=== PATIENT | male | born 1985 | race Caucasian/White ===

== ENCOUNTER 2017-08-07 07:24 | Emergency (ER) | payer BC, OTHER ==
[~2017-08-07] VITALS: Ht 188 cm; Wt 160.0 kg
[~2017-08-07 07:24] MED LIST: CITA40TA4 PO; PROP10TA7 PO
[2017-08-07 07:29] VITALS: TEMP 36.7; Ht 188 cm; Wt 160.0 kg
[2017-08-07] MEDS ORDERED: HYDROmorphone INJ 1 MG/ML SYR IV STA (07:43)
[2017-08-07] MEDS ORDERED: KETOROLAC TROMETHAMINE 30 MG/ML VIAL IV STA (07:43)
[2017-08-07] MEDS ORDERED: METOCLOPRAMIDE HCL INJ 5 MG/ML 2 ML VIAL IV STA (07:43)
[2017-08-07] MEDS ORDERED: SODIUM CHLORIDE 0.9% 1000ML 1,000 ML IV STA (07:43)
[2017-08-07 07:56] LABS: BASO % 0.2 %; BASO ABS # 0.01 K/uL (0-0.2); EOS % 1.7 %; HEMATOCRIT 43.3 % (42-52); IG# 0.01 K/uL (0.00-0.02); LYMPH % 26.7 %; LYMPH ABS # 1.54 K/uL (1.2-3.4); MEAN CELL VOLUME 89.1 fL (80-100); MEAN CORPUSCULAR HEMOGLOBIN 30.9 pg (25-34); MEAN CORPUSCULAR HGB CONC 34.6 g/dl (32-36); MEAN PLATELET VOLUME 11.2 fL (7.4-10.4); MONO % 6.3 %; MONO ABS # 0.36 K/uL (0.11-0.59); NEUT % 64.9 %; NEUT ABS # 3.74 K/uL (1.4-6.5); PLATELET COUNT 217 K/uL (130-400); RED CELL DISTRIBUTION WIDTH CV 12.8 % (11.5-14.5); RED CELL DISTRIBUTION WIDTH SD 41.6 fL (36.4-46.3); WHITE BLOOD COUNT 5.76 K/uL (4.8-10.8)
--- NOTE | 2017-08-07 07:56 | EMERGENCY ROOM VISIT NOTE ---
History Report prepared by Wisam: Chandler Landry Under the Supervision of: Dr. Jimenez Redd M.D. First contact with patient: 07:29 Chief Complaint: ABDOMINAL PAIN Stated Complaint: GALLBLADDER History of Present Illness The patient is a 32 year old male who presents to the Emergency Room with complaints of worsening right sided abdominal pain that began several months ago. He notes that his pain has been worsening significantly over the past month. The patient notes that he had a Gallbladder function screening at the end of April, 3 months ago. His gallbladder was found to only be at 60%. The patient's symptoms are worsened by eating. He does not mention any vomiting. Source of History: patient Onset: Several months ago Position: abdomen (Right sided) Timing: worsening Modifying Factors (Worsening): eating Associated Symptoms: No vomiting Review of Systems See HPI for pertinent positives & negatives. A total of 10 systems reviewed and were otherwise negative. Past Medical & Surgical Medical Problems: (1) Broken leg Family History Patient reports no known family medical history. Social History Smoking Status: Never Smoker Alcohol Use: occasionally Drug Use: none Occupation Status: employed Current/Historical Medications Scheduled Amlodipine (Norvasc), 5 MG PO DAILY Pantoprazole (Pantoprazole Sodium), 40 MG PO DAILY Scheduled PRN Ondansetron Hcl (Zofran), 4 MG PO DIRECTED PRN for Nausea Miscellaneous Medications Lisinopril (Zestril), 5 MG PO Allergies Coded Allergies: Erythromycin (Verified Allergy, Unknown, hives, 08/07/17) Sulfisoxazole (Verified Allergy, Unknown, hives, 08/07/17) Physical Exam Vital Signs Date Time Temp Pulse Resp B/P (MAP) Pulse Ox O2 Delivery O2 Flow Rate FiO2 08/07/17 09:29 67 18 146/95 99 08/07/17 08:26 68 08/07/17 08:19 97 Room Air 08/07/17 08:18 70 18 142/81 97 Room Air 08/07/17 07:29 36.7 80 18 178/108 99 Room Air Physical Exam GENERAL: Awake, alert, well-appearing, in no acute distress HENT: Normocephalic, atraumatic. Oropharynx unremarkable. EYES: Normal conjunctiva. Sclera non-icteric. NECK: Supple. No nuchal rigidity. FROM. No JVD. RESPIRATORY: Clear to auscultation. CARDIAC: Regular rate, normal rhythm. Extremities warm and well perfused. Pulses equal. ABDOMEN: Soft, non-distended. No tenderness to palpation. No rebound or guarding. No masses. RECTAL: Deferred. MUSCULOSKELETAL: Chest examination reveals no tenderness. The back is symmetrical on inspection without obvious abnormality. There is no CVA tenderness to palpation. No joint edema. LOWER EXTREMITIES: Calves are equal size bilaterally and non-tender. No edema. No discoloration. NEURO: Normal sensorium. No sensory or motor deficits noted. SKIN: No rash or jaundice noted. Medical Decision & Procedures ER Provider Diagnostic Interpretation: Radiology results as stated below per my review and radiologist interpretation: ABDOMINAL ULTRASOUND, RIGHT UPPER QUADRANT HISTORY: Pt c/o RUQ abd pain . COMPARISON: None. FINDINGS: Pancreas: The pancreatic head and tail are obscured by overlying bowel gas. The remaining portions of the pancreas are within normal limits. Liver: No hepatic masses. Mildly enlarged measuring 19 cm in length. Gallbladder: No gallbladder wall thickening. No gallstones. CBD: 5 mm. Right kidney: No hydronephrosis. IMPRESSION: 1. Normal gallbladder. No gallstones. 2. Mild hepatomegaly. Electronically signed by: Darryn Mcdonough M.D. 08/07/2017 9:05 AM Dictated Date/Time: 08/07/2017 9:04 AM ABDOMEN 2VIEW W/PA CHEST RTN CLINICAL HISTORY: Right upper quadrant abdominal pain COMPARISON STUDY: No previous studies for comparison. FINDINGS: Erect chest reveals no free air. There is no focal pulmonary consolidation. Erect and supine views the abdomen reveal no abnormally dilated loops of large or small bowel. IMPRESSION: No evidence of bowel obstruction. No evidence of free air. Electronically signed by: Jey Cohen M.D. 08/07/2017 8:18 AM Dictated Date/Time: 08/07/2017 8:17 AM Laboratory Results 08/07/17 07:41 Red Blood Count 4.86, Mean Corpuscular Volume 89.1, Mean Corpuscular Hemoglobin 30.9, Mean Corpuscular Hemoglobin Concent 34.6, Mean Platelet Volume 11.2, Neutrophils (%) (Auto) 64.9, Lymphocytes (%) (Auto) 26.7, Monocytes (%) (Auto) 6.3, Eosinophils (%) (Auto) 1.7, Basophils (%) (Auto) 0.2, Neutrophils # (Auto) 3.74, Lymphocytes # (Auto) 1.54, Monocytes # (Auto) 0.36, Eosinophils # (Auto) 0.10, Basophils # (Auto) 0.01 08/07/17 07:41 Test 08/07/17 07:41 08/07/17 08:01 White Blood Count 5.76 K/uL (4.8-10.8) Red Blood Count 4.86 M/uL (4.7-6.1) Hemoglobin 15.0 g/dL (14.0-18.0) Hematocrit 43.3 % (42-52) Mean Corpuscular Volume 89.1 fL (80-100) Mean Corpuscular Hemoglobin 30.9 pg (25-34) Mean Corpuscular Hemoglobin Concent 34.6 g/dl (32-36) Platelet Count 217 K/uL (130-400) Mean Platelet Volume 11.2 fL (7.4-10.4) Neutrophils (%) (Auto) 64.9 % Lymphocytes (%) (Auto) 26.7 % Monocytes (%) (Auto) 6.3 % Eosinophils (%) (Auto) 1.7 % Basophils (%) (Auto) 0.2 % Neutrophils # (Auto) 3.74 K/uL (1.4-6.5) Lymphocytes # (Auto) 1.54 K/uL (1.2-3.4) Monocytes # (Auto) 0.36 K/uL (0.11-0.59) Eosinophils # (Auto) 0.10 K/uL (0-0.5) Basophils # (Auto) 0.01 K/uL (0-0.2) RDW Standard Deviation 41.6 fL (36.4-46.3) RDW Coefficient of Variation 12.8 % (11.5-14.5) Immature Granulocyte % (Auto) 0.2 % Immature Granulocyte # (Auto) 0.01 K/uL (0.00-0.02) Anion Gap 7.0 mmol/L (3-11) Est Creatinine Clear Calc Drug Dose 184.2 ml/min Estimated GFR () 125.6 Estimated GFR (Non- 108.4 BUN/Creatinine Ratio 18.6 (10-20) Calcium Level 8.6 mg/dl (8.5-10.1) Total Bilirubin 0.6 mg/dl (0.2-1) Direct Bilirubin < 0.1 mg/dl (0-0.2) Aspartate Amino Transf (AST/SGOT) 33 U/L (15-37) Alanine Aminotransferase (ALT/SGPT) 56 U/L (12-78) Alkaline Phosphatase 84 U/L (45-117) Total Protein 6.9 gm/dl (6.4-8.2) Albumin 3.8 gm/dl (3.4-5.0) Lipase 121 U/L (73-393) Urine Color YELLOW Urine Appearance CLEAR (CLEAR) Urine pH 5.5 (4.5-7.5) Urine Specific [place] 1.031 (1.000-1.030) Urine Protein NEG (NEG) Urine Glucose (UA) NEG (NEG) Urine Ketones NEG (NEG) Urine Occult Blood NEG (NEG) Urine Nitrite NEG (NEG) Urine Bilirubin NEG (NEG) Urine Urobilinogen NEG (NEG) Urine Leukocyte Esterase NEG (NEG) Labs reviewed by ED physician. Medications Administered Medications (Trade) Dose Ordered Sig/Aroldo Route Start Time Stop Time Status Last Admin Dose Admin Sodium Chloride 1,000 ml @ 999 mls/hr Q1H1M STAT IV 08/07/17 07:43 08/07/17 08:43 DC 08/07/17 07:56 999 MLS/HR Metoclopramide HCl (Reglan Inj) 10 mg NOW STAT IV 08/07/17 07:43 08/07/17 07:45 DC 08/07/17 07:56 10 MG Ketorolac Tromethamine (Toradol Inj) 30 mg NOW STAT IV 08/07/17 07:43 08/07/17 07:45 DC 08/07/17 07:56 30 MG ECG Per My Interpretation Indication: abdominal pain Rate (beats per minute): 75 Rhythm: normal sinus Findings: other (No TIFFANY/STD, Normal [place]) ED Course 0736: Past medical records reviewed. The patient was evaluated in room A4. A complete history and physical examination was performed. 0921: Upon reexamination the patient is resting in bed. I discussed results and treatment plan with the patient. He verbalizes agreement and understanding. The patient is ready for discharge. Medical Decision Differential diagnosis: Etiologies such as appendicitis, diverticulitis, PUD, biliary pathology, UTI, pancreatitis, obstruction, mesenteric ischemia, aortic pathology, infections, inflammatory bowel disease, renal colic, as well as others were entertained. This is a 32-year-old male who presents the emergency department complaining of abdominal pain. Patient had a large workup at [facility] and believes that his gallbladder needs to come out. Here in the emergency department he is nontender on examination. He was sent for a right upper quadrant ultrasound this along with his CBC renal profile liver profile and his lipase are all essentially normal. Patient refused pain medications here in the emergency department. Serial abdominal examinations were performed on the patient in the emergency department and at no time to the patient exhibited a surgical abdomen. Based on the patient's presentation I feel that he most likely needs follow-up with surgery as an outpatient. Strongly expressed this to the patient who is in agreement with the treatment plan. Medication Reconcilliation Current Medication List: was personally reviewed by me Blood Pressure Screening Patient's blood pressure: Elevated blood pressure Blood pressure disposition: Referred to PCP Impression Primary Impression: Abdominal pain Scribe Attestation The scribe's documentation has been prepared under my direction and personally reviewed by me in its entirety. I confirm that the note above accurately reflects all work, treatment, procedures, and medical decision making performed by me. Departure Information Dispostion Home / Self-Care Referrals CASSANDRA DIAZ D.O. (PCP) Forms HOME CARE DOCUMENTATION FORM, IMPORTANT VISIT INFORMATION Patient Instructions My [facility] Additional Instructions Follow up with Dr Vasquez's office clear liquid diet next 48 hours Take 5 ml Maalox before every meal and at bedtime You have been examined and treated today on an emergency basis only. This is not a substitute for, or an effort to provide, complete comprehensive medical care. It is impossible to recognize and treat all injuries or illnesses in a single emergency department visit. It is therefore important that you follow up closely with Dr Diaz. Call as soon as possible for an appointment. Thank you for your time and consideration. I look forward to speaking with you again soon. Please don't hesitate to call us if you have any questions. Problem Qualifiers Primary Impression: Abdominal pain Abdominal location: right upper quadrant Qualified Codes: R10.11 - Right upper quadrant pain
[2017-08-07] MEDS ORDERED: PANT40TA2 PO (08:05)
[2017-08-07] MEDS ORDERED: AMLO-110 PO (08:05)
[2017-08-07] MEDS ORDERED: ONDA4TAB46 PO (08:05)
[2017-08-07] MEDS ORDERED: LISI-729 PO (08:05)
[2017-08-07 08:15] LABS: ALBUMIN 3.8 gm/dl (3.4-5.0); BLOOD UREA NITROGEN 18 mg/dl (7-18); CALCIUM 8.6 mg/dl (8.5-10.1); CARBON DIOXIDE 26 mmol/L (21-32); CREATININE 0.94 mg/dl (0.60-1.40); GLUCOSE 92 mg/dl (70-99); LIPASE 121 U/L (73-393); POTASSIUM 4.2 mmol/L (3.5-5.1); SODIUM 140 mmol/L (136-145)
[2017-08-07 08:17] LABS: ALKALINE PHOSPHATASE 84 U/L (45-117); ALT/SGPT 56 U/L (12-78); AST/SGOT 33 U/L (15-37); TOTAL PROTEIN 6.9 gm/dl (6.4-8.2)
[2017-08-07 08:19] VITALS: O2SAT 97
--- NOTE | 2017-08-07 08:20 | DIAGNOSTIC IMAGING REPORT ---
ABDOMEN 2VIEW W/PA CHEST RTN CLINICAL HISTORY: Right upper quadrant abdominal pain COMPARISON STUDY: No previous studies for comparison. FINDINGS: Erect chest reveals no free air. There is no focal pulmonary consolidation. Erect and supine views the abdomen reveal no abnormally dilated loops of large or small bowel. IMPRESSION: No evidence of bowel obstruction. No evidence of free air. Electronically signed by: Jey Cohen M.D. 08/07/2017 8:18 AM Dictated Date/Time: 08/07/2017 8:17 AM
--- NOTE | 2017-08-07 09:06 | DIAGNOSTIC IMAGING REPORT ---
ABDOMINAL ULTRASOUND, RIGHT UPPER QUADRANT HISTORY: Pt c/o RUQ abd pain . COMPARISON: None. FINDINGS: Pancreas: The pancreatic head and tail are obscured by overlying bowel gas. The remaining portions of the pancreas are within normal limits. Liver: No hepatic masses. Mildly enlarged measuring 19 cm in length. Gallbladder: No gallbladder wall thickening. No gallstones. CBD: 5 mm. Right kidney: No hydronephrosis. IMPRESSION: 1. Normal gallbladder. No gallstones. 2. Mild hepatomegaly. Electronically signed by: Darryn Mcdonough M.D. 08/07/2017 9:05 AM Dictated Date/Time: 08/07/2017 9:04 AM
[2017-08-07 09:29] VITALS: BP 146/95; PULSE 67; O2SAT 99
== END 2017-08-07 09:30 | disposition home or self-care (01) ==
LOC: C.EDB 07:25 → C.EDA 09:30
DX: R10.11 Right upper quadrant pain (principal); Z79.899 Other long term (current) drug therapy; Z88.1 Allergy status to other antibiotic agents; Z88.2 Allergy status to sulfonamides